=== PATIENT | male | born 2000 | race Caucasian/White ===

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

== ENCOUNTER 2022-11-28 07:41 | Emergency (ER) | payer OTHER ==
[~2022-11-28] VITALS: Ht 170.2 cm; Wt 88.1 kg
[2022-11-28 08:59] LABS: RSV AMPLIFICATION NEGATIVE (NEGATIVE)
[2022-11-28] MEDS ORDERED: ASPIRIN 81MG CHEW TABLET PO ONE ×2 (10:35→12:00)
[2022-11-28] MEDS: NS 1,000 ML IV SCH ×2 (10:51→20:35)
[2022-11-28 11:06] LABS: BASO % 0.4 % (0.0-1.0); EOS # 0.1 10^3/uL (0.0-0.5); EOS % 0.7 % (0.0-3.0); HEMATOCRIT 45.4 % (42.0-52.0); HEMOGLOBIN 15.1 g/dl (13.5-17.5); LYMPH # 1.7 10^3/uL (1.5-5.0); LYMPH % 14.6 % (24.0-44.0); MEAN CORPUSCULAR HEMOGLOBIN 29.2 pg (27.0-33.0); MEAN CORPUSCULAR HGB CONC 33.3 g/dl (32.0-36.5); MEAN CORPUSCULAR VOLUME 87.6 fl (80.0-96.0); MONO # 1.1 10^3/uL (0.0-0.8); MONO % 9.6 % (2.0-8.0); NEUTROPHILS # 8.5 10^3/uL (1.5-8.5); NEUTROPHILS % 74.2 % (36.0-66.0); PLATELET COUNT, AUTOMATED 337 10^3/uL (150-450); RED BLOOD COUNT 5.18 10^6/uL (4.30-6.10); WHITE BLOOD COUNT 11.4 10^3/uL (4.0-10.0)
[2022-11-28 11:35] LABS: LIPASE 24 U/L (12-53)
[2022-11-28 11:37] LABS: ALBUMIN 3.6 G/DL (3.2-5.2); ALKALINE PHOSPHATASE 164 U/L (46-116); ALT/SGPT 89 U/L (7.0-40); AST/SGOT 61 U/L (<34); BILIRUBIN,DIRECT 0.3 MG/DL (<0.4); BILIRUBIN,TOTAL 0.7 MG/DL (0.3-1.2); BLOOD UREA NITROGEN 11 MG/DL (9-23); CALCIUM LEVEL 9.1 MG/DL (8.5-10.1); CARBON DIOXIDE LEVEL 28 MMOL/L (20-31); CHLORIDE LEVEL 103 MMOL/L (98-107); CREATININE FOR GFR 0.93 MG/DL (0.70-1.30); GLUCOSE, FASTING 95 MG/DL (60-100); POTASSIUM SERUM 4.4 MMOL/L (3.5-5.1); SODIUM LEVEL 137 MMOL/L (136-145); TOTAL PROTEIN 7.1 G/DL (5.7-8.2)
[2022-11-28 11:38] LABS: THYROID STIMULATING HORMONE 2.237 uIU/ML (0.48-4.17)
[2022-11-28 11:39] LABS: FREE T4 1.11 NG/DL (0.83-1.43)
[2022-11-28 11:50] LABS: CPK CREATINE PHOSPHOKINASE 318 U/L (46-171); MB/CK RELATIVE INDEX 6.91 (< OR =4)
[2022-11-28 12:12] LABS: CPK CREATINE PHOSPHOKINASE 299 U/L (46-171)
[2022-11-28] MEDS ORDERED: ISOVUE-370 76% 100ML VIAL As Ordered ONE (12:17)
[2022-11-28 12:20] LABS: CK-MB VALUE MASS 22.9 NG/ML (<3.6); MB/CK RELATIVE INDEX 7.65 (< OR =4)
[2022-11-28 12:36] LABS: AMPHETAMINES LEVEL URINE NEGATIVE (NEGATIVE); BARBITURATES URINE NEGATIVE (NEGATIVE); BENZODIAZEPINES URINE NEGATIVE (NEGATIVE); CANNABINOIDS URINE NEGATIVE (NEGATIVE); COCAINE METABOLITE URINE NEGATIVE (NEGATIVE); METHADONE URINE NEGATIVE (NEGATIVE); OPIATES URINE NEGATIVE (NEGATIVE); PHENCYCLIDINE URINE NEGATIVE (NEGATIVE)
[2022-11-28] MEDS ORDERED: cefTRIAXone SOD 2 GM in D5W MINI-BAG PLUS 50 ML IV ONE (15:15)
[2022-11-28] MEDS ORDERED: AZITHROMYCIN INJ 500 MG, VIAL MATE ADAPTER 1 EACH in NS 250 ML IV ONE (15:15)
[2022-11-28] MEDS ORDERED: ACET1TAB55 PO (15:26)
[2022-11-28] MEDS ORDERED: HOME MED LIST COMPLETE! XX SCH (15:30)
[2022-11-28] MEDS ORDERED: ONDANSETRON 4MG 2ML VIAL IV ONE (16:20)
[2022-11-28] MEDS ORDERED: HEPARIN DRIP 25,000 UNITS in IV 1 EA IV SCH (17:00)
[2022-11-28] MEDS ORDERED: HEPARIN SOD (PORCINE) 5000UNITS/ML 1ML VIAL/SYRINGE IV ONE (17:00)
[2022-11-28] MEDS ORDERED: ACETAMINOPHEN TAB 650MG DOSE (2X325MG) PO PRN (17:05)
[2022-11-28 17:22] LABS: HIV 1&2 SCREEN CENTAUR NEGATIVE (NEGATIVE)
[2022-11-28] MEDS: MORPHINE 2 MG/ML 1ML VIAL IV PRN ×2 (20:54→21:14)
[2022-11-28 23:48] LABS: INR 0.89; PROTHROMBIN TIME 12.2 SECONDS (12.5-14.5)
[2022-11-28 23:49] LABS: PARTIAL THROMBOPLASTIN TIME 43.7 SECONDS (24.8-34.2)
[2022-11-29] MEDS ORDERED: HEPARIN DRIP 25,000 UNITS in IV 1 EA IV SCH (00:45)
[2022-11-29] MEDS ORDERED: HEPARIN SOD (PORCINE) 5000UNITS/ML 1ML VIAL/SYRINGE IV PRN (00:45)
[2022-11-29] MEDS ORDERED: ACETAMINOPHEN TAB 650MG DOSE (2X325MG) PO ONE (04:50)
[2022-11-29 06:05] VITALS: BP 110/63
== END 2022-11-29 06:44 | disposition short-term general hospital (02) ==
LOC: M ED 07:41
DX: J18.9 Pneumonia, unspecified organism (principal); I21.4 Non-ST elevation (NSTEMI) myocardial infarction; Z88.1 Allergy status to other antibiotic agents
CPT/HCPCS: 71046; 71275; 80048; 80076; 80307; 82550; 82553; 83690; 83880; 84439; 84443; 84484; 85025; 85379; 85610; 85652; 85730; 86140; 87040; 87389; 87486; 87581; 87631; 87633; 87798; 93005; 93306; 94760; 96365; 96366; 96367; 96375; 99285; J0456; J0696; J2405; Q9967